=== PATIENT | male | born 1995 ===

== ENCOUNTER 2016-09-14 21:53 | Emergency (ER) | payer OTHER ==
[2016-09-14 21:58] VITALS: BP 125/84; PULSE 84; RESP 16; TEMP 98.4; O2SAT 100
--- NOTE | 2016-09-14 23:24 | ED PDOC ---
HPI: General Adult Time Seen by Provider: 09/14/16 22:56 Chief Complaint (Nursing): Cough, Cold, Congestion History Per: Patient Additional Complaint(s): Pt. has had cough x 2 weeks productive of yellow sputum. Reports no fever. Pt. has been taking OTC meds without relief. Today he developed chest pain present only with coughing prompting ED visit. Past Medical History Reviewed: Historical Data, Nursing Documentation, Vital Signs Vital Signs: Last Vital Signs Temp 98.4 F 09/14/16 21:55 Pulse 84 09/14/16 21:55 Resp 16 09/14/16 21:55 BP 125/84 09/14/16 21:55 Pulse Ox 100 09/14/16 21:55 - Family History Family History: States: No Known Family Hx - Home Medications Home Medications: Ambulatory Orders Medication Instructions Recorded Benzonatate [Tessalon Perle] 100 mg PO Q8 PRN #30 capsule 09/14/16 Fluticasone Propionate [Flonase] 2 spr NS DAILY PRN #1 bottle 09/14/16 - Allergies Allergies/Adverse Reactions: Allergies Allergy/AdvReac Type Severity Reaction Status Date / Time No Known Allergies Allergy Verified 09/14/16 21:58 Review of Systems ROS Statement: Except As Marked, All Systems Reviewed And Found Negative Physical Exam - Physical Exam Appears: Positive for: Well, Non-toxic, No Acute Distress Skin: Positive for: Normal Color, Warm. Negative for: Rash Eye Exam: Positive for: EOMI, Normal appearance, PERRL ENT: Positive for: Normal ENT Inspection, TM Is/Are (non-erythematous, non- bulging b/l). Negative for: Pharyngeal Erythema, Tonsillar Exudate, Tonsillar Swelling Neck: Positive for: Normal, Painless ROM Cardiovascular/Chest: Positive for: Regular Rate, Rhythm Respiratory: Positive for: CNT, Normal Breath Sounds Neurologic/Psych: Positive for: Alert, Oriented - ECG O2 Sat by Pulse Oximetry: 100 - Radiology X-Ray: Interpreted by Me (CXR) X-Ray Interpretation: No Acute Disease Disposition - Clinical Impression Clinical Impression: URI (upper respiratory infection) - Patient ED Disposition Is Patient to be Admitted: No - Disposition Referrals: [facility] [Outside] Disposition: Routine/Home Disposition Time: 23:23 Condition: STABLE Prescriptions: Benzonatate [Tessalon Perle] 100 mg PO Q8 PRN #30 capsule PRN Reason: Cough Fluticasone Propionate [Flonase] 2 spr NS DAILY PRN #1 bottle PRN Reason: Allergy Symptoms Instructions: Upper Respiratory Infection (ED) Print Language: ALBANIAN
--- NOTE | 2016-09-15 15:44 | RAD ---
HISTORY: cough COMPARISON: No prior. TECHNIQUE: Chest PA and lateral FINDINGS: LUNGS: No active pulmonary disease. PLEURA: No significant pleural effusion identified. No pneumothorax apparent. CARDIOVASCULAR: Normal. OSSEOUS STRUCTURES: No significant abnormalities. VISUALIZED UPPER ABDOMEN: Normal. OTHER FINDINGS: None. IMPRESSION: No active disease.
== END 2016-09-15 00:04 | disposition home or self-care (01) ==
LOC: H.ER 21:53
DX: J06.9 Acute upper respiratory infection, unspecified (principal)